=== PATIENT | female | born 1960 | race Caucasian/White ===

== ENCOUNTER → 2019-03-25 12:35 | Outpatient (CLI) | payer MEDICAID, SELFPAY ==
--- NOTE | ~2019-03-25 | XR_ITS ---
XR hand RT min 3V 03/25/2019 13:05 INDICATION: Right hand pain PROCEDURE: 3 views right hand COMPARISON: No prior studies for comparison. FINDINGS: Fracture, dislocation or subluxation is not identified. 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 The soft tissues appear within normal limits. No foreign bodies are identified . IMPRESSION: 1: NO ACUTE BONE OR JOINT ABNORMALITY IDENTIFIED. Reviewed, dictated and finalized at location B. BILITY REPRESENTATIVE
== END ==
PROVIDERS: PCP Emergency Medicine; Visit Provider Emergency Medicine
DX: M79.644 Pain in right finger(s) (principal)
CPT/HCPCS: 73130

== ENCOUNTER 2019-05-20 12:38 | Emergency (ER) | payer OTHER, SELFPAY ==
[2019-05-20 12:54] VITALS: BP 151/78; PULSE 84; RESP 18; TEMP 36.4; O2SAT 100
--- NOTE | 2019-05-20 13:00 | ED.LOWEXIN ---
HPI - Extremity Injury (Lower) General Chief Complaint: Skin/Abscess/Foreign Body Stated Complaint: Pain/Redness left leg Time Seen by Provider: 05/20/19 13:00 Source: patient and RN notes reviewed History of Present Illness HPI Narrative: Patient is a 58-year-old female presents the urgent care with complaints of redness and wound to left dominguez. Patient states that she skidded on a board approximately 2 days ago and it is increased in pain as well as oozing. Patient states she is been cleaning it with soap and water. Denies any fever, chills, nausea, vomiting. Patient is up-to-date on her tetanus. No other acute complaints. No acute distress noted. Patient read the plan of care. Related Data Home Medications Medication Instructions Recorded Confirmed lisinopril [Zestril] 5 mg PO DAILY 05/20/19 05/20/19 varenicline [Chantix] 0.5 mg PO DAILY 05/20/19 05/20/19 Allergies Allergy/AdvReac Type Severity Reaction Status Date / Time Penicillins Allergy Mild HIVES Verified 05/20/19 13:01 adhesive Allergy Unknown Rash Verified 05/20/19 13:01 methotrexate Allergy Unknown nausea Verified 05/20/19 13:01 BANDAID Allergy Unknown Rash Uncoded 05/20/19 13:01 PROCAINE HCL Allergy Unknown Unknown Uncoded 05/20/19 13:01 Review of Systems Review of Systems: Narrative: CONSTITUTIONAL: Denies fever, chills, or sweats. EYES: Denies visual changes, redness, or discharge. ENT: Denies rhinorrhea, congestion, sore throat, or otalgia. CARDIOVASCULAR: Denies chest pain, palpitations, or edema. RESPIRATORY: Denies cough or dyspnea. GASTROINTESTINAL: Denies abdominal pain, nausea, vomiting, or diarrhea. GENITOURINARY: Denies dysuria or hematuria. SKIN: Reports of wound with redness and pain to the left dominguez MUSCULOSKELETAL: Denies back pain, joint pain, or myalgia. NEUROLOGIC: Denies headache, numbness, or weakness. All other systems reviewed are negative, except as documented in HPI. [facility] Social History Social History Gender identity (if verbalized by the patient): Female Comments At the time of my signature, I reviewed and agree with the nursing past medical, surgical, social, and family history. There is no relevant family history pertinent to the patient complaint. Exam Narrative: Exam Narrative: GENERAL: This is a well-nourished, well-developed patient, in no apparent distress. HEAD: normocephalic, atraumatic. EYES: PERRL. Sclera clear/white. Vision is grossly intact. EARS: External ears normal NOSE: External nose normal with no obvious nasal discharge THROAT: Mucous membranes moist NECK: Neck supple CARDIOVASCULAR: Regular rate and rhythm without murmurs, gallops, or rubs. RESPIRATORY: Clear to auscultation. Breath sounds equal bilaterally. No wheezes, rales, or rhonchi. SKIN: 2 cm diameter area of opened wound with clear drainage to the left dominguez with surrounding 7 cm meter diameter erythema NEURO: awake, alert, and oriented to person, place and time. There were no obvious focal neurologic abnormalities. EXTREMITIES: No clubbing, cyanosis, or edema. Course Vital Signs Vital signs: Vital Signs Temperature 97.5 F L 05/20/19 12:54 Pulse Rate 84 05/20/19 12:54 Respiratory Rate 18 05/20/19 12:54 Blood Pressure 151/78 H 05/20/19 12:54 Pulse Oximetry 100 05/20/19 12:54 Temperature 97.5 F L 05/20/19 12:54 Pulse Rate 84 05/20/19 12:54 Respiratory Rate 18 05/20/19 12:54 Blood Pressure 151/78 H 05/20/19 12:54 Pulse Oximetry 100 05/20/19 12:54 Reviewed?patient is informed that they may have pre-hypertension or hypertension based on a blood pressure reading in the department. I recommend the patient call the primary care provider listed on their discharge instructions or a physician of their choice this week to arrange follow-up for further evaluation of possible pre-hypertension or hypertension. MDM - Extremity Injury (Lower) MDM Narrative Medical decision making narrative: Advised the patient to complet
== END 2019-05-20 13:10 | disposition home or self-care (01) ==
PROVIDERS: Emergency Provider Nurse Practitioner Family
DX: L03.116 Cellulitis of left lower limb (principal); I10 Essential (primary) hypertension
CPT/HCPCS: 99213; G0463

== ENCOUNTER 2019-10-04 13:33 | Emergency (ER) | payer OTHER, SELFPAY ==
--- NOTE | ~2019-10-04 | XR_ITS ---
EXAMINATION: XR chest 2V EXAM DATE: 10/04/2019 14:01 INDICATION: Shortness of breath. TECHNIQUE: Frontal and lateral projections of the chest obtained and reviewed. Comparison is made to prior examination from 12/23/2018. FINDINGS: Moderate chronic hyperinflation. Resolution of previously seen pneumonia. The lungs are cl ear. There are no pleural effusions. The cardiomediastinal silhouette is within normal limits. The re is no pneumothorax suspected. The bones and soft tissues are unremarkable. IMPRESSION: 1. No acute cardiopulmonary findings. 2. Hyperinflation. Reviewed, dictated and finalized at location A.
[2019-10-04 13:47] VITALS: BP 153/86; PULSE 88; RESP 22; TEMP 36.6; O2SAT 94
--- NOTE | 2019-10-04 14:22 | ED.URI ---
HPI - URI/Sore Throat General Chief Complaint: Upper Respiratory Infection Stated Complaint: cold Time Seen by Provider: 10/04/19 14:22 Source: patient and RN notes reviewed Mode of arrival: ambulatory Limitations: no limitations History of Present Illness HPI Narrative: This is a 58 years old female presents to the office for an evaluation of cough for two days. Associated with sinus drainage and tightness with coughing. She is a 1/2 to 1pack smoker. Admits to history of COPD. She tries her rescue inhaler and cough drops for her symptoms. Denies sick contact. She does not work currently. Related Data Home Medications Medication Instructions Recorded Confirmed lisinopril [Zestril] 5 mg PO DAILY 05/20/19 10/04/19 albuterol sulfate [ProAir HFA] inh INHALATION QID 10/04/19 Allergies Allergy/AdvReac Type Severity Reaction Status Date / Time Penicillins Allergy Mild HIVES Verified 05/20/19 13:01 adhesive Allergy Unknown Rash Verified 05/20/19 13:01 methotrexate Allergy Unknown nausea Verified 05/20/19 13:01 BANDAID Allergy Unknown Rash Uncoded 05/20/19 13:01 PROCAINE HCL Allergy Unknown Unknown Uncoded 05/20/19 13:01 Review of Systems Review of Systems: Narrative: CONSTITUTIONAL: Denies fever, chills EYES: 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 [facility] Past Medical History Medical History (Updated 10/04/19 @ 14:41 by MARQUES Aldridge) COPD (chronic obstructive pulmonary disease) HTN (hypertension) Social History Social History (Updated 10/04/19 @ 14:39 by MARQUES Aldridge) Smoking status: Current every day smoker Gender identity (if verbalized by the patient): Female Comments At time of signature, I agree with nursing past medical, surgical, social and family history. There is no relevant family history pertinent to the presenting complaint. Exam Narrative: Exam Narrative: GENERAL: This is a well-nourished, well-developed patient, in no apparent distress. EARS: External ears normal, auditory canals clear and without drainage, TMs normal without perforation. Hearing grossly intact. NOSE: External nose normal with no obvious nasal discharge, nares without redness, no rhinorrhea. THROAT: Mucous membranes moist, posterior pharynx erythema and edematous. NECK: Neck supple, non-tender without lymphadenopathy, masses or thyromegaly. CARDIOVASCULAR: Regular rate and rhythm without murmurs, gallops, or rubs. RESPIRATORY: wheezing noted with inspiration in upper lobes; diminished breath sounds in the lower lobes. Breath sounds equal bilaterally. No rales, or rhonchi. GASTROINTESTINAL: Abdomen soft, non-tender, nondistended. Bowel sounds are active. No guarding. SKIN: warm, intact with no suspicious lesions or rash, good texture and turgor. NEURO: awake, alert, and oriented to person, place and time. There were no obvious focal neurologic abnormalities. Steady gait Gin Coma Scale Eye Opening: Spontaneous 4 Gin Coma Scale Motor: Obeys Commands 6 Gin Coma Scale Verbal: Oriented 5 Course Vital Signs Vital signs: Vital Signs Temperature 97.8 F 10/04/19 13:47 Pulse Rate 88 10/04/19 13:47 Respiratory Rate 22 H 10/04/19 13:47 Blood Pressure 153/86 H 10/04/19 13:47 Pulse Oximetry 94 10/04/19 13:47 Temperature 97.8 F 10/04/19 13:47 Pulse Rate 88 10/04/19 13:47 Respiratory Rate 22 H 10/04/19 13:47 Blood Pressure 153/86 H 10/04/19 13:47 Pulse Oximetry 94 10/04/19 13:47 MDM - URI/Sore Throat MDM Narrative Medical decision making narrative: Elevated BP noted, recommend she follow-up with her doctor in 2 weeks for re
== END 2019-10-04 14:34 | disposition home or self-care (01) ==
PROVIDERS: Emergency Provider Nurse Practitioner; PCP Internal Medicine
DX: J06.9 Acute upper respiratory infection, unspecified (principal); Z20.828 Contact with and (suspected) exposure to other viral communicable diseases; J44.9 Chronic obstructive pulmonary disease, unspecified; I10 Essential (primary) hypertension; F17.200 Nicotine dependence, unspecified, uncomplicated
CPT/HCPCS: 71046; 99213; G0463

== ENCOUNTER 2022-08-06 12:32 | Outpatient (CLI) | payer MEDICARE, MEDICAID, SELFPAY ==
--- NOTE | ~2022-08-06 | XR_ITS ---
Clinical Indication: Shortness of breath PA and lateral views of the chest: Comparison: 10/04/2019 Findings: The lungs are clear, without evidence of focal consolidation or pleural effusion. Cardiome diastinal silhouette is within normal limits. Bones and soft tissues are unremarkable. Impression: Normal chest. Reviewed, dictated and finalized at [facility]. Impression: Normal chest.
--- NOTE | 2022-08-06 13:40 | ECHO_ITS ---
Patient Info Name: Kelly Chinchilla Age: 61 years : 1960 Gender: Female Ht: 64 in Wt: 150 lbs BSA: 1.77 m2 HR: 82 bpm BP: 160 / 92 mmHg Heart Rhythm: Sinus Rhythm Technical Quality: Fair Exam Date: 08/06/2022 1:57 PM Exam Location: [facility] Patient Status: Outpatient Admit Date: 08/06/2022 Staff Ordering Physician: Gio Soliz MD Refining Still Operator: Joseline Jiang RDCS Attending Provider: Gio Soliz MD Referring Physician: Heydi MOON; Exam Type: CA echo doppler color flow Study Info Indications R06.00 - Dyspnea, unspecified Complete two-dimensional, color flow and Doppler transthoracic echocardiogram is performed. Summary 1. Complete two-dimensional, color flow and Doppler transthoracic echocardiogram is performed. 2. Left ventricular chamber dimension is normal. 3. Left ventricular systolic function is normal, estimated at 60-65%. 4. The left ventricular diastolic function is grade I diastolic dysfunction. 5. E/e' 15 is elevated. 6. There is trace mitral valve regurgitation. 7. There is trace tricuspid valve regurgitation. 8. Mild pulmonary hypertension, estimated pulmonary arterial systolic pressure is 41 mmHg. Left Ventricle E/e' 15 is elevated. Left ventricular chamber dimension is normal. Left ventricular systolic function is normal, estimated at 60-65%. The left ventricular diastolic function is grade I diastolic dysfunction. Right Ventricle Right ventricular systolic function is normal and with normal TAPSE 1.8 cm. Right ventricular chamber dimension is normal. Left Atria Left atrial chamber dimension is normal. Right Atria Right atrial chamber dimension is normal. Aortic Valve The aortic valve is trileaflet. There is no aortic valve stenosis. There is no aortic valve regurgitation. Pulmonic Valve There is no pulmonic regurgitation. Mitral Valve There is no mitral valve stenosis. There is trace mitral valve regurgitation. Tricuspid Valve There is trace tricuspid valve regurgitation. Mild pulmonary hypertension, estimated pulmonary arterial systolic pressure is 41 mmHg. Pericardium/Pleural There is no pericardial effusion. Inferior Vena Cava Normal inferior vena cava with >50% collapse upon inspiration consistent with normal right atrial pressure, 5 mmHg. Aorta The aortic root size at the sinus of Valsalva is normal. Left Ventricular Outflow Tract Name Value Normal LVOT 2D LVOT Diameter 2.0 cm LVOT Doppler LVOT Peak Gradient 3 mmHg LVOT Mean Gradient 2 mmHg LVOT VTI 18 cm LVOT VTI/AV VTI Ratio 0.7 LVOT Stroke Volume 56 ml LVOT CO 4.1 l/min LVOT CI 2.3 l/min/m2 Pulmonic Valve Name Value Normal RVOT Doppler RVOT Peak Gradient 3 mmHg
--- NOTE | 2022-08-07 08:48 | WPDPFTINT ---
PFT Procedure Performed PFT Procedure Performed Spirometry with Pre/Post Bronchodilator Plethysmography (Lung Vol) Diffusing Cap (DLCO) Flow Vol Loop PFT Interpretation Lung volumes were measured with the body plethysmography method. Lung volumes are unremarkable. Spirometry showed diminished expiratory flow rates and a normal FEV1 to FVC ratio 69%. Following administration of a bronchodilator there was significant increase in expiratory flow rates. Lung diffusion capacity is mildly reduced at 63% predicted.. The flow volume loop is consistent with obstructive airway disease. The diminished expiratory flow rates in the face of normal total lung capacity and normal FEV1 to FVC ratio suggests nonspecific pattern. However, the significant response to bronchodilators may suggest underlying obstructive airway disease. Clinical correlation advised. Impression: Nonspecific pattern with significant response to bronchodilators. Mild reduction in lung diffusion capacity.
--- NOTE | 2022-08-07 08:53 | WPDSIXMINUTE ---
Six Minute Walk Procedure Procedure Performed Pulmonary Stress Test (6 min walk) Six Minute Walk Six Minute Walk: This 6 minute walk test was carried out with the patient breathing ambient air. The baseline pre-walk oxyhemoglobin saturation was 96%. The patient walked 426 m with no stops during testing. During the walk the oxyhemoglobin saturation remained in the range of 94% to 98%. The perceived dyspnea on the Vicky scale was 1 at baseline and increased to 3 at the end of testing. Impression: No evidence of oxyhemoglobin desaturation on this testing.
== END 2022-08-06 12:33 | disposition home or self-care (01) ==
LOC: ANHPFT 12:42
PROVIDERS: PCP Internal Medicine; Visit Provider Internal Medicine Pulmonary Disease
DX: R06.00 Dyspnea, unspecified (principal); J18.9 Pneumonia, unspecified organism; Z87.891 Personal history of nicotine dependence; J44.9 Chronic obstructive pulmonary disease, unspecified; I27.20 Pulmonary hypertension, unspecified
CPT/HCPCS: 71046; 93306; 94060; 94618; 94726; 94729

== ENCOUNTER 2023-10-14 10:15 | Outpatient (CLI) | payer MEDICARE, MEDICAID, SELFPAY ==
--- NOTE | 2023-10-14 11:20 | PCRCNOTE ---
PATIENT CAME IN FOR PRE/POST PFT. PATIENT STATES THAT SHE WAS RELEASED 2 DAYS AGO DUE TO PNEUMONIA. AT THIS TIME SHE IS UNABLE TO PREFORM TEST. WILL RESCHEDULE WHEN SHE IS BACK TO BASELINE.
== END 2023-10-14 10:16 | disposition home or self-care (01) ==
PROVIDERS: PCP Internal Medicine; Visit Provider Internal Medicine Pulmonary Disease
DX: D89.9 Disorder involving the immune mechanism, unspecified (principal); T78.40XA Allergy, unspecified, initial encounter; R05.9 Cough, unspecified; R06.09 Other forms of dyspnea
CPT/HCPCS: 99199

== ENCOUNTER 2023-10-15 08:23 | Outpatient (CLI) | payer MEDICARE, MEDICAID, SELFPAY ==
--- NOTE | ~2023-10-15 | PE_ITS ---
EXAMINATION: PET skull to mid thigh DATE: 10/15/2023 10:35 INDICATION: Solitary nodule of lung. TECHNIQUE: 8.133 mCi of 18-fluorodeoxyglucose (18-FDG) was administered i.v. Low dose computed tomogr aphy (CT) images were acquired from the base of the brain to the proximal thighs for attenuation theo ection and anatomic localization. Automated exposure control was employed. Dose-length product (DLP) was 571 mGy-cm. Positron emission tomography (PET) images were acquired in the same distribution. 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 There are likely changes of right ocular lens replaceme nt surgery. There are no pathologically enlarged lymph nodes. Chest: There is mild emphysema. There is a staple line in the left upper lobe. There is mild scarring at right lung apex. There is a 12 mm nodule in right upper lobe with maximum SUV of 9.3. There is mi ld atelectasis in right lung. There is a moderate-sized right pleural effusion. There is nodular righ t-sided pleural thickening with increased activity. There is a 4 mm nodule in left upper lobe without increased activity. A calcified right lung nodule and calcified right hilar lymph nodes are consiste nt with old granulomatous disease. There is nodular left pleural thickening with areas of hyperdensit y and increased activity, consistent with changes of pleurodesis. The heart size is normal. No perica rdial effusion. There are normal-sized mediastinal and right paratracheal lymph nodes with increased activity. Abdomen/pelvis/proximal thighs: The liver, gallbladder, pancreas, and adrenal glands are normal. Calc ifications in the spleen are consistent with old granulomatous disease. There is a 10 mm cyst in righ t kidney. Left kidney is normal. There is a 15 mm uterine fibroid. There is diverticulosis of the col on without evidence of diverticulitis. There are no dilated loops of bowel. There is a normal sized g astrohepatic lymph node with increased activity. There is no free intraperitoneal fluid. There is no osseous malignancy. IMPRESSION: 1. 12 mm low right upper lobe pulmonary nodule with increased activity, consistent with primary bronc hogenic carcinoma. 2. Moderate-sized right pleural effusion with nodular pleural thickening with increased activity, con sistent with malignant effusion. Diagnostic thoracentesis is recommended. 3. Normal-sized mediastinal, right hilar, and gastrohepatic lymph nodes with increased activity, cons istent with metastatic disease. Reviewed, dictated and finalized at location A. IMPRESSION: 1. 12 mm low right upper lobe pulmonary nodule with increased activity, consist ent with primary bronchogenic carcinoma. 2. Moderate-sized right pleural effusion with nodular pleural thickening with i ncreased activity, consistent with malignant effusion. Diagnostic thoracentesis is recommended. 3. Normal-sized mediastinal, right hilar, and gastrohepatic lymph nodes with in creased activity, consistent with metastatic disease.
[2023-10-15 08:47] LABS: Glucose Point of Care 95 mg/dl (65-105)
== END 2023-10-15 08:24 | disposition home or self-care (01) ==
PROVIDERS: PCP Internal Medicine; Visit Provider Internal Medicine Pulmonary Disease
DX: R91.1 Solitary pulmonary nodule (principal); J90 Pleural effusion, not elsewhere classified
CPT/HCPCS: 78815; A9552

== ENCOUNTER 2024-04-28 18:12 | Emergency (ER) | payer MEDICARE, MEDICAID, SELFPAY ==
--- NOTE | ~2024-04-28 | XR_ITS ---
EXAMINATION: XR chest 2V DATE: 04/28/2024 18:43 INDICATION: Left chest wall pain after treatment for lung cancer TECHNIQUE: PA and lateral views of the chest were obtained. COMPARISON: Chest radiograph dated 08/06/2022 and PET/CT dated 10/15/2023 FINDINGS: Right internal jugular central venous port catheter with distal tip at the high right atrium. Nodular opacity right apex which demonstrated increased FDG uptake on prior PET study suspicious for primary bronchogenic carcinoma. Persistent irregular mixed nodule and linear opacity lateral right midlung c hronicity and appearance would favor atelectasis/scarring although there was increased FDG uptake and associated malignancy is not excludable. Very small right pleural effusion with blunting at the cost ophrenic angle and posterior sulcus. No other airspace opacities, pulmonary edema, pleural effusion o r pneumothorax. Heart size is normal. Thoracic kyphosis with mild anterior wedging of a couple mid th oracic vertebral bodies and moderate spondylosis. IMPRESSION: 1. Persistent nodular opacity right upper lung zone with increased FDG uptake on prior PET study like ly related to reported history of primary bronchogenic carcinoma. 2. Persistent irregular mixed nodular and linear opacity at the lateral right midlung zone with less intense increased FDG uptake on prior PET study which could represent atelectasis/scarring and/or add itional malignancy. 2. Very small right pleural effusion. Reviewed, dictated and finalized at location A. ESSIONAL NURSING TUTOR IMPRESSION: 1. Persistent nodular opacity right upper lung zone with increased FDG uptake o n prior PET study likely related to reported history of primary bronchogenic ca rcinoma. 2. Persistent irregular mixed nodular and linear opacity at the lateral right m idlung zone with less intense increased FDG uptake on prior PET study which cou ld represent atelectasis/scarring and/or additional malignancy. 2. Very small right pleural effusion.
--- NOTE | 2024-04-28 18:27 | ED_ITS ---
HPI - General Adult General Chief complaint: Chest Pain Stated complaint: Chest Pain Time Seen by Provider: 04/28/24 18:27 Source: patient Mode of arrival: ambulatory Limitations: no limitations History of Present Illness HPI narrative: 63 yo F presents with c/o L sided CP since yesterday morning. Concerned she broke a bone or pulled a muscle. Pt states she took her medications on empty stomach. Normally eats before taking them. States she was dry heaving and threw herself forward in case she would puke. Never puked. Has had pain to chest since. Thinks she pulled muscle sometime while dry heaving. pain on palpation and with movement. Does have some pain at rest but is very mild. Son states on way to express care every stop or turn that he took that seatbelt touched pt's chest she complained of pain. Took tylenol prior to arrival and pain better. pt states just want to make sure i didnt do anthing to my chest . pt has lung CA. currently getting chemo treatments. has port to R upper chest. has had surgery to R lung. No increased SOB from baseline. Ambulatory with steady gait. no other complaints today. All systems reviewed and negative except as noted above. Related Data Home Medications ?Medication ?Instructions ?Recorded ?Confirmed ?Last Taken ?Type amlodipine 10 mg tablet mg 04/28/24 Unknown History dexamethasone 4 mg tablet mg 04/28/24 Unknown History escitalopram oxalate 10 mg tablet mg 04/28/24 Unknown History fluticasone fur. 100 mcg-umeclid inhalation 04/28/24 Unknown History 62.5 mcg-vilant 25 mcg inhalat.powder (Trelegy Ellipta) folic acid 1 mg tablet 04/28/24 Unknown History loratadine 10 mg tablet (Claritin) 10 mg PO DAILY 04/28/24 04/28/24 Unknown History magnesium oxide 400 mg (241.3 mg mg 04/28/24 Unknown History magnesium) tablet omeprazole 40 mg capsule,delayed mg 04/28/24 Unknown History release sodium di- and tablet 04/28/24 Unknown History monophosphate-potassium phos monobasic 250 mg tablet (Phosphorous) Allergies Allergy/AdvReac Type Severity Reaction Status Date / Time Penicillins Allergy Mild HIVES Verified 08/07/22 10:12 adhesive Allergy Unknown Rash Verified 08/07/22 10:12 methotrexate Allergy Unknown nausea Verified 08/07/22 10:12 BANDAID Allergy Unknown Rash Uncoded 08/07/22 10:12 PROCAINE HCL Allergy Unknown Unknown Uncoded 08/07/22 10:12 Review of Systems Review of Systems: CONSTITUTIONAL: Denies fever, chills, or sweats. EYES: Denies visual changes, redness, or discharge. ENT: Denies rhinorrhea, congestion, sore throat, or otalgia. CARDIOVASCULAR: Denies chest pain, palpitations, or edema. RESPIRATORY: Denies cough or dyspnea. GASTROINTESTINAL: Denies abdominal pain, nausea, vomiting, or diarrhea. GENITOURINARY: Denies dysuria or hematuria. SKIN: Denies rash or itching. MUSCULOSKELETAL: Denies back pain, joint pain, or myalgia. Reports left upper chest pain on palpation and with movement. NEUROLOGIC: Denies headache, numbness, or weakness. PSYCHIATRIC: Denies anxiety or depression. All other systems reviewed are negative, except as documented in HPI. [facility] Past Medical History Medical History COPD (chronic obstructive pulmonary disease) HTN (hypertension) Family History Family History Father Cancer Mother Acute leukemia Sibling , Brother - ARDS Sister - Lung Cancer No problems noted. Social History Social History (Updated 08/07/22 @ 10:13 by KIMBERLEY Keith) Smoking packs per day: 0.5 Smoking cigarettes per day: 10.0 Years smoked: 46 Smoking pack-years: 23.00 Smoking status: Current every day smoker Tobacco type: cigarettes Alcohol intake: never Substance use: never Education: High School Diploma/GED Living arrangements: with family Occupation/Education: retired Gender identity (if verbalized by the patient): Female Comments At time of signature, agree with nursing past medical, surgical, social and family history. There is no relevant family history pertinent to the presenting complaint. Exam Narrative: GENERAL: This is a well-nourished, well-developed patient, in no apparent distress. HEAD: normocephalic, atraumatic. EYES: PERRL. Sclera clear/white. Vision is grossly intact. EARS: External ears normal NOSE: External nose normal NECK: Neck supple, non-tender without lymphadenopathy, masses or thyromegaly. CARDIOVASCULAR: Regular rate and rhythm without murmurs, gallops, or rubs. RESPIRATORY: Clear to auscultation. Breath sounds equal bilaterally. No wheezes, rales, or rhonchi. MUSCULOSKELETAL: tenderness on palpation of L chest. L side of chest has more bony prominence compared to R chest, could be due to surgical hx of R lung. SKIN: warm, Dry, intact with no suspicious lesions or rash, good texture and turgor. NEURO: awake, alert, and oriented to person, place and time. There were no obvious focal neurologic abnormalities. EXTREMITIES: No joint tenderness, effusion, or edema noted. Course Course Level of Care: Express Care Visit Vital Signs Vital signs: Vital Signs Temperature 37.4 C 04/28/24 18:28 Pulse Rate 114 H 04/28/24 18:28 Respiratory Rate 16 04/28/24 18:28 Blood Pressure 167/88 H 04/28/24 18:28 Pulse Oximetry 100 04/28/24 18:28 Temperature 37.4 C 04/28/24 18:28 Pulse Rate 114 H 04/28/24 18:28 Respiratory Rate 16 04/28/24 18:28 Blood Pressure 167/88 H 04/28/24 18:28 Pulse Oximetry 100 04/28/24 18:28 Reviewed Medical Decision Making MDM Narrative Medical decision making narrative: No new findings on chest x-ray to explain patient's musculoskeletal chest pain. Recommend she continue [id number] Tylenol to treat pain. Will alternate between ice and heat. Patient is comfortable. Has no other complaints today. Sitting on stretcher comfortably. Has appointment with her oncologist next week. Will discuss with her oncologist if she continues to musculoskeletal chest pain. Will go to the ER for any worsening of symptoms. An EKG was not completed on this pt today as she was not concerned for her, she did not feel it was necessary and she was not having any cardiac symptoms. Please be advised this is a medical document. It is intended for [id number] communication. It is written in medical language and may contain unfamiliar abbreviations or verbiage. Medical documents are intended to carry relevant information, facts as evident, and the clinical opinion of the practitioner at the time of the encounter. This report may have been done utilizing a voice recognition system. Attempts have been made to correct errors. However, there may be uncorrected grammatical, spelling, and recognition errors present. The file time of this note does not necessarily represent the time of service. Vital Signs Vital Signs: Vital Signs Temperature 37.4 C 04/28/24 18:28 Pulse Rate 114 H 04/28/24 18:28 Respiratory Rate 16 04/28/24 18:28 Blood Pressure 167/88 H 04/28/24 18:28 Pulse Oximetry 100 04/28/24 18:28 Temperature 37.4 C 04/28/24 18:28 Pulse Rate 114 H 04/28/24 18:28 Respiratory Rate 16 04/28/24 18:28 Blood Pressure 167/88 H 04/28/24 18:28 Pulse Oximetry 100 04/28/24 18:28 Discharge Plan Discharge Clinical Impression: Chest pain, musculoskeletal Patient Disposition: Home, Self-Care Condition: Stable Instructions: Musculoskeletal Pain (ED) Additional Instructions: The x-ray of your chest did not show any new findings. Continue to take tylenol every 6 to 8 hours as needed for pain. Alternate between ice and heat. If pain not improving, discuss with your oncologist. For any worsening of symptoms go to the ER. Patient Language: Bolivian Prescriptions: No Action omeprazole 40 mg capsule,delayed release(DR/EC) magnesium oxide 400 mg (241.3 mg magnesium) tablet amlodipine 10 mg tablet dexamethasone 4 mg tablet Phosphorous 250 mg tablet folic acid 1 mg tablet escitalopram oxalate 10 mg tablet Trelegy Ellipta 100-62.5-25 mcg blister with device INHALATION loratadine [Claritin] 10 mg tablet 10 mg PO DAILY albuterol sulfate [ProAir HFA] 90 mcg/actuation HFA aerosol inhaler 2 inh INHALATION QID PRN (Reason: shortness of breath or wheezing) Qty: 1 4RF Follow-up/Referrals: PHYSICIAN,[employer] [Primary Care Provider] - Time of Disposition: 18:59
[2024-04-28 18:28] VITALS: BP 167/88; PULSE 114; RESP 16; TEMP 37.4; O2SAT 100
[2024-04-28 19:03] VITALS: BP 141/86; PULSE 111; RESP 18; O2SAT 98
[2024-04-28 19:06] VITALS: BP 141/86; PULSE 106; O2SAT 98
== END 2024-04-28 19:06 | disposition home or self-care (01) ==
PROVIDERS: Emergency Provider Nurse Practitioner Family
DX: R07.89 Other chest pain (principal); F17.210 Nicotine dependence, cigarettes, uncomplicated; I10 Essential (primary) hypertension; J44.9 Chronic obstructive pulmonary disease, unspecified; C34.90 Malignant neoplasm of unspecified part of unspecified bronchus or lung; Z79.60 Long term (current) use of unspecified immunomodulators and immunosuppressants
CPT/HCPCS: 71046; 99213; G0463

== ENCOUNTER 2024-12-10 18:23 | Emergency (ER) | payer MEDICARE, MEDICAID, SELFPAY ==
[2024-12-10 18:45] VITALS: BP 147/87; PULSE 103; RESP 16; TEMP 36.4; O2SAT 91
--- NOTE | 2024-12-10 18:45 | ED_ITS ---
HPI - Skin/Abscess/Foreign Bdy General Chief complaint: Skin/Abscess/Foreign Body Stated complaint: RASH/1 FINGERNAIL & 2 TOENAILS FELL OFF Time Seen by Provider: 12/10/24 18:32 Source: patient Mode of arrival: ambulatory Limitations: no limitations History of Present Illness HPI narrative: Kelly is a 64-year-old female patient with history of hypertension non-small cell carcinoma lung with Mets, COPD, hypoxia- wears home O2 with complaints of a skin rash on her arms and legs x2 weeks. She reports her fingernail and 2 toenails have fallen off. Has some redness and swelling to the left leg with mild weeping. Drainage coming from the right 2nd toe when expressed. Was taking Keytruda for cancer treatment and has discontinued that as these skin side effects or likely due to that medication. Is in discussion with her cancer doctor as to what medication to start next. States the rash is itchy but not painful at this time. Is concerned that she has a bacterial skin infection as she is having purulent discharge from the right toe. Rash has open honey crusted yellow coverings to the legs and arms. Has fungal toenail infection to all her toenails Denies any known fever, chills, body aches. Related Data Home Medications ?Medication ?Instructions ?Recorded ?Confirmed ?Last Taken ?Type amlodipine 10 mg tablet 10 mg 04/28/24 Unknown Hist ory escitalopram oxalate 10 mg tablet mg 04/28/24 Unknown History fluticasone fur. 100 mcg-umeclid inhalation 04/28/24 Unknown History 62.5 mcg-vilant 25 mcg inhalat.powder (Trelegy Ellipta) folic acid 1 mg tablet 04/28/24 Unknown History loratadine 10 mg tablet (Claritin) 10 mg PO DAILY 04/1012/10/24 Unknown History magnesium oxide 400 mg (241.3 mg 400 mg PO TID 5 12/10/24 Unknown History magnesium) tablet omeprazole 40 mg capsule,delayed 40 mg PO DAILY 12/10/24 Unknown History release sodium di- and tablet 04/28/24 Unknown His tory monophosphate-potassium phos monobasic 250 mg tablet (Phosphorous) cyanocobalamin (vitamin B-12) 500 mcg 12/10/24 Unknow n History mcg tablet ergocalciferol (vitamin D2) 1,250 12/10/24 Unknown H istory mcg (50,000 unit) capsule lidocaine-prilocaine 2.5 %-2.5 % 12/10/24 Unknown Hi story topical cream mupirocin 2 % topical ointment topical 12/10/24 Unkno wn History ondansetron HCl 8 mg tablet mg 12/10/24 Unknown Histo ry prochlorperazine maleate 10 mg mg 12/10/24 Unknown Hi story tablet triamcinolone acetonide 0.1 % topical 12/10/24 Unknow n History lotion Allergies Allergy/AdvReac Type Severity Reaction Status Date / Time Penicillins Allergy Mild HIVES Verified 12/10/24 18:49 adhesive Allergy Unknown Rash Verified 12/10/24 18:49 methotrexate Allergy Unknown nausea Verified 12/10/24 18:49 BANDAID Allergy Unknown Rash Uncoded 08/07/22 10:12 PROCAINE HCL Allergy Unknown Unknown Uncoded 08/07/22 10:12 [facility] Past Medical History Medical History COPD (chronic obstructive pulmonary disease) HTN (hypertension) Family History Family History Father Cancer Mother Acute leukemia Sibling , Brother - ARDS Sister - Lung Cancer No problems noted. Social History Social History (Updated 08/07/22 @ 10:13 by KIMBERLEY Keith) Smoking packs per day: 0.5 Smoking cigarettes per day: 10.0 Years smoked: 46 Smoking pack-years: 23.00 Smoking status: Current every day smoker Tobacco type: cigarettes Alcohol intake: never Substance use: never Education: High School Diploma/GED Living arrangements: with family Occupation/Education: retired Gender identity (if verbalized by the patient): Female Comments At the time of my signature, I reviewed and agree with the nursing past medical, surgical, social, and family history. There is no relevant family history pertinent to the patient complaint. Exam Narrative: General: Well-developed, well nourished, in no apparent distress, wearing home O2 Head: Normocephalic, atraumatic. Cardio: Regular rate and rhythm, s1 and s2 normal, no murmur appreciated. Resp: Crackles in the lower bases, no rhonchi, wheezing or rubs. Integumentary: [place], warm, and dry, left leg 1+ edema with red, plaque-like honey-crusted rash with mild weeping, redness with mild swelling to the left great toe-lost toenail, loss of fingernail to the left thumb with localized redness and swelling, red open rash that has honey crusted yellow scabbing to the legs and arms. Has fungal toenail infection to all her toenails and fingernails. Course Course Emergency Course: Portions of this record may have been created with voice recognition software. Level of Care: Express Care Visit Vital Signs Vital signs: Vital Signs Temperature 36.4 C L 12/10/24 18:45 Pulse Rate 103 H 12/10/24 18:45 Respiratory Rate 16 12/10/24 18:45 Blood Pressure 147/87 H 12/10/24 18:45 Pulse Oximetry 91 12/10/24 18:45 Oxygen Delivery Nasal Cannula 12/10/24 18:45 Oxygen Flow Rate 1 12/10/24 18:45 Temperature 36.4 C L 12/10/24 18:45 Pulse Rate 103 H 12/10/24 18:45 Respiratory Rate 16 12/10/24 18:45 Blood Pressure 147/87 H 12/10/24 18:45 Pulse Oximetry 91 12/10/24 18:45 Oxygen Delivery Nasal Cannula 12/10/24 18:45 Oxygen Flow Rate 1 12/10/24 18:45 Vital signs reviewed MDM - Skin/Abscess/Foreign Bdy MDM Narrative Medical decision making narrative: At the time of visit patient is resting comfortably on the exam table. Patient appears to be nontoxic. History of hypertension non-small cell carcinoma lung with Mets, COPD, hypoxia- wears home O2 with complaints of a skin rash on her arms and legs x2 weeks. She reports her fingernail and 2 toenails have fallen off. Has some redness and swelling to the left leg with mild weeping. Drainage coming from the right 2nd toe when expressed. Was taking Keytruda for cancer treatment and has discontinued that as these skin side effects or likely due to that medication. Is in discussion with her cancer doctor as to what medication to start next. States the rash is itchy but not painful at this time. Is concerned that she has a bacterial skin infection as she is having purulent discharge from the right toe. Rash has open honey crusted yellow coverings to the legs and arms. Has fungal toenail infection to all her toenails Denies any known fever, chills, body aches. She denies any increase in shortness of breath or chest pain. Wound culture was ordered. Labs: Wound culture was obtained and sent to the lab. Plan: I suspect patient likely has cellulitis to the left extremity with some purulent discharge coming from the right 2nd toe with localized cellulitis and has a honey-crusted skin rash to her upper and lower extremities. Will place patient on clindamycin. Patient has allergies to penicillin and Bactrim will interfere with her phosphorus. Recommend taking a [id number] probiotic daily while taking the antibiotics. Also recommend close follow-up with PCP/cancer provider. Explained to her that I cannot do any treatment for her toenail fungus-loss of nails at this time. Supportive measures were discussed with the patient and they voiced understanding discharge instructions and agrees to treatment plan. Return precautions reviewed Differential Diagnosis Differential diagnosis: Likely abscess of skin or subcutaneous tissue, viral exanthem, dermatophytosis, urticaria, herpes zoster, allergic reaction to drug, cellulitis, eczema, insect bites, impetigo, contact dermatitis and other (Toenail fungal infection) Discharge Plan Discharge Clinical Impression: Side effect of medication, Fungal infection of nail Cellulitis Qualifiers: Site of cellulitis: extremity Site of cellulitis of extremity: lower extremity Laterality: left Qualified Code(s): L03.116 - Cellulitis of left lower limb Patient Disposition: Home Condition: Stable Instructions: Antibiotic Form, Cellulitis (ED) Additional Instructions: Stop keytruda as discussed- contact your cancer doctor on Thursday Wound culture was obtained and sent to the lab Take antibiotics as prescribed Take a daily probiotic while taking antibiotics Increase fluids and stay well hydrated Keep legs elevated May take Tylenol/ibuprofen as needed for pain or fever Follow-up with your PCP in 2-3 days for re-evaluation If symptoms worsen recommend going to the emergency room for further evaluation- developed fever, worsening of rash, increase in swelling, increase in pain, or any other concerning symptoms Patient Language: Armenian Prescriptions: New clindamycin HCl [Cleocin HCl] 300 mg capsule 300 mg PO Q8H 10 Days Qty: 30 0RF No Action omeprazole 40 mg capsule,delayed release(DR/EC) 40 mg PO DAILY magnesium oxide 400 mg (241.3 mg magnesium) tablet 400 mg PO TID amlodipine 10 mg tablet 10 mg Phosphorous 250 mg tablet folic acid 1 mg tablet escitalopram oxalate 10 mg tablet Trelegy Ellipta 100-62.5-25 mcg blister with device INHALATION loratadine [Claritin] 10 mg tablet 10 mg PO DAILY ondansetron HCl 8 mg tablet prochlorperazine maleate 10 mg tablet lidocaine-prilocaine 2.5-2.5 % cream cyanocobalamin (vitamin B-12) 500 mcg tablet mupirocin 2 % ointment TOPICAL ergocalciferol (vitamin D2) 1,250 mcg (50,000 unit) capsule triamcinolone acetonide 0.1 % lotion TOPICAL albuterol sulfate [ProAir HFA] 90 mcg/actuation HFA aerosol inhaler 2 inh INHALATION QID PRN (Reason: shortness of breath or wheezing) Qty: 1 4RF Follow-up/Referrals: Aide,Prema [Other] Time of Disposition: 18:58 Quality NIHSS Nursing Documentation ED NIHSS nursing documentation: reviewed/agree
== END 2024-12-10 19:15 | disposition home or self-care (01) ==
PROVIDERS: Emergency Provider Nurse Practitioner Family
DX: B35.1 Tinea unguium (principal); T45.1X5A Adverse effect of antineoplastic and immunosuppressive drugs, initial encounter; L03.116 Cellulitis of left lower limb; L03.032 Cellulitis of left toe; C34.90 Malignant neoplasm of unspecified part of unspecified bronchus or lung; C79.9 Secondary malignant neoplasm of unspecified site; J44.9 Chronic obstructive pulmonary disease, unspecified; Z99.81 Dependence on supplemental oxygen; I10 Essential (primary) hypertension; F17.210 Nicotine dependence, cigarettes, uncomplicated
CPT/HCPCS: 87070; 87075; 87186; 87205; 99213; G0463